=== PATIENT | male | born 1945 | race Caucasian/White ===

== ENCOUNTER 2018-05-03 07:09 | Day surgery (SDC) | payer OTHER ==
[~2018-05-03] VITALS: Ht 175.3 cm; Wt 82.7 kg
[~2018-05-03 07:09] MED LIST: Alavert D-12 A1 EACH PO; ZOLP5 PO; [UNRECOGNIZED DRUG - OTHER] PO
== END 2018-05-03 09:21 | disposition home or self-care (01) ==
LOC: ORSCSDS 07:09
PROVIDERS: Surgery
PROC: 0DBN8ZX Excision of Sigmoid Colon, Via Natural or Artificial Opening Endoscopic, Diagnostic (ICD-10-PCS; principal; 2018-05-03 08:30)
DX: Z12.11 Encounter for screening for malignant neoplasm of colon (principal); D12.5 Benign neoplasm of sigmoid colon; Z79.899 Other long term (current) drug therapy
CPT/HCPCS: 88305; J7120

== ENCOUNTER → 2018-10-01 | Outpatient (CLI) | payer OTHER | END | disposition home or self-care (01) | LOC: LAB SHORT 10:56 → PLD 10:56 | DX: D48.5 Neoplasm of uncertain behavior of skin (principal) | CPT/HCPCS: 88305 ==

== ENCOUNTER 2021-08-20 07:33 | Day surgery (SDC) | payer OTHER ==
[~2021-08-20] VITALS: Ht 172.7 cm; Wt 78.4 kg
[~2021-08-20 07:33] MED LIST changes: +PANT40 PO
--- NOTE | 2021-08-20 07:49 | NUR ---
[facility]TO [facility] ADMISSION STARTED. Patient States Post-Procedure ride home has been arranged. History, Chart, Medications and Allergies reviewed before start of procedure.Patient confirms NPO status and agrees with scheduled surgery.
--- NOTE | 2021-08-20 08:57 | NUR ---
08/20/21 0857 Pati Workman PATIENT HAD SMALL LACERATIONS FROM SHAVING IN PREOP BELOW INCISION SITE, ABDOMEN. SURGEON NOTIFIED.
--- NOTE | 2021-08-20 11:02 | NUR ---
ATTEMPTED TO CALL SEVERAL TIMES, GOES STRAIGHT TO VOICEMAIL. WILL GO OVER DISCHARGE INSTRUCTIONS. PT REPORTS PAIN DOING BETTER. IV OUT WNL.
--- NOTE | 2021-08-20 11:12 | NUR ---
Patient up to Ambulate independently. Gait steady. Discharge instructions reviewed with patient. Patient verbalizes understanding. Copy given to patient to take home. SO FAR PT'S HAS NOT BEEN AVAILABLE BY PHONE, CALLED SEVERAL TIMES, GOES STRAIGHT TO VOICEMAIL.
--- NOTE | 2021-08-20 11:30 | NUR ---
Patient States Post-Procedure ride home has been arranged, WITH . Discharged via wheelchair to private car for ride home. PT REPORTS READY TO GO HOME. DENIES DIZZINESS, LIGHTHEADEDNESS. REPORTS PAIN DOING MUCH BETTER. DRESSING C/D/I. ABD BINDER IN PLACE. Discharge instructions reviewed with patient. Patient verbalizes understanding. Copy given to patient to take home.
== END 2021-08-20 11:30 | disposition home or self-care (01) ==
LOC: ORSCMMR 07:33 → ORD 09:00 → ORSCMMR 09:00
PROVIDERS: Surgery
PROC: 0WUF0JZ Supplement Abdominal Wall with Synthetic Substitute, Open Approach (ICD-10-PCS; principal; 2021-08-20 09:00)
DX: K43.9 Ventral hernia without obstruction or gangrene (principal); K21.9 Gastro-esophageal reflux disease without esophagitis; Z79.899 Other long term (current) drug therapy
CPT/HCPCS: A9270; C1781; J0690; J1100; J1885; J2250; J2405; J2704; J2795; J3010; J7120